=== PATIENT | male | born 1985 | race African-American/Black ===

== ENCOUNTER 2018-07-03 13:31 | Emergency (ER) | payer OTHER ==
[~2018-07-03] VITALS: Ht 185.4 cm; Wt 76.0 kg
[2018-07-03] MEDS ORDERED: IV NORMAL SALINE 1,000ML 1,000 ML IV ONE (14:00)
--- NOTE | 2018-07-03 14:09 | PHYS DOC ---
Past History Past Medical History: No Pertinent History Past Surgical History: No Surgical History Alcohol Use: None Drug Use: None Adult General Chief Complaint Chief Complaint: FEVER HPI HPI 32-year-old otherwise healthy male presents with a 2-3 day history of subjective fever, body aches, headache nausea vomiting diarrhea and malaise. He states he has been unable to keep anything down recently. He has no energy. He had come home from work secondary to the intractable nausea and vomiting as well as diarrhea.[] Review of Systems Review of Systems Constitutional: Denies fever or chills [] Eyes: Denies change in visual acuity, redness, or eye pain [] HENT: Denies nasal congestion or sore throat [] Respiratory: Denies cough or shortness of breath [] Cardiovascular: No additional information not addressed in HPI [] GI: Per history of present illness[] : Denies dysuria or hematuria [] Musculoskeletal: Denies back pain or joint pain [] Integument: Denies rash or skin lesions [] Neurologic: Denies headache, focal weakness or sensory changes [] Endocrine: Denies polyuria or polydipsia [] All other systems were reviewed and found to be within normal limits, except as documented in this note. Current Medications Current Medications Current Medications Medications (Trade) Dose Ordered Sig/Carlos Start Time Stop Time Status Last Admin Dose Admin Ketorolac Tromethamine (Toradol 30mg Vial) 30 mg 1X ONCE 07/03/18 14:00 07/03/18 14:01 UNV Ondansetron HCl (Zofran) 4 mg 1X ONCE 07/03/18 14:00 07/03/18 14:01 UNV Sodium Chloride 1,000 ml @ 1,000 mls/hr 1X ONCE 07/03/18 14:00 07/03/18 14:59 Allergies Allergies Allergies Coded Allergies Type Severity Reaction Last Updated Verified grass pollen Allergy Unknown 07/03/18 Yes Physical Exam Physical Exam Constitutional: Well developed, well nourished, appears acutely ill[] HENT: Normocephalic, atraumatic, bilateral external ears normal, oropharynx moist, no oral exudates, nose normal. [] Eyes: PERRLA, EOMI, conjunctiva normal, no discharge. [] Neck: Normal range of motion, no tenderness, supple, no stridor. [] Cardiovascular:Heart rate regular rhythm, no murmur [] Lungs & Thorax: Bilateral breath sounds clear to auscultation [] Abdomen: Bowel sounds normal, soft, no tenderness, no masses, no pulsatile masses. [] Skin: Warm, dry, no erythema, no rash. [] Back: No tenderness, no CVA tenderness. [] Extremities: No tenderness, no cyanosis, no clubbing, ROM intact, no edema. [] Neurologic: Alert and oriented X 3, normal motor function, normal sensory function, no focal deficits noted. [] Psychologic: Anxious[] Current Patient Data Vital Signs Vital Signs Date Time Temp Pulse Resp B/P (MAP) Pulse Ox O2 Delivery O2 Flow Rate FiO2 07/03/18 13:31 101.9 107 18 99 Room Air EKG EKG [] Radiology/Procedures Radiology/Procedures [] Course & Med Decision Making Course & Med Decision Making Pertinent Labs and Imaging studies reviewed. (See chart for details) [ED course: Evaluation reveals a 32-year-old male with acute gastroenteritis type symptoms. He was given IV fluids and Zofran during his stay in the department and he felt much better. He was able to tolerate Jell-O. Fill the patient is safe for discharge home at this time.] Dragon Disclaimer Dragon Disclaimer This electronic medical record was generated, in whole or in part, using a voice recognition dictation system. Departure Departure: Impression: Primary Impression: Viral gastroenteritis Disposition: 01 HOME, SELF-CARE Condition: IMPROVED Patient Instructions: Viral Gastroenteritis Additional Instructions: Plenty of fluids today including Gatorade or Powerade. Take Zofran as needed for nausea and vomiting. Return to the emergency department with any new or concerning symptoms Scripts Ondansetron (ONDANSETRON ODT) 4 Mg Tab.rapdis 1 TAB PO PRN Q6-8HRS for NAUSEA, #16 TAB Prov: PADDY MONTES DO 07/03/18 PADDY MONTES DO Jul 03, 2018 14:09
[2018-07-03] MEDS ORDERED: ONDANSETRON PF 4 MG/2 ML VIAL. IV ONE (14:20)
[2018-07-03] MEDS ORDERED: KETOROLAC 30 MG/ML VIAL. IV ONE (14:20)
[2018-07-03 14:22] LABS: BASO % 0 % (0-3); EOS % 0 % (0-3); HEMOGLOBIN 14.6 g/dL (13.0-17.5); LYMPH % 7 % (24-48); MEAN CORPUSCULAR HEMOGLOBIN 31 pg (25-35); MEAN CORPUSCULAR HGB CONC 34 g/dL (31-37); MEAN CORPUSCULAR VOLUME 92 fL (79-100); MONO # 1.7 x10^3/uL (0.0-1.1); MONO % 13 % (0-9); NEUT # 10.4 x10^3uL (1.8-7.7); NEUT % 80 % (31-73); PLATELET COUNT 137 x10^3/uL (140-400); RED BLOOD COUNT 4.65 x10^6/uL (4.30-5.70)
[2018-07-03 14:32] LABS: INFLUENZA A PATIENT NEGATIVE (NEGATIVE); INFLUENZA B PATIENT NEGATIVE (NEGATIVE)
[2018-07-03 14:44] LABS: ALBUMIN 2.7 g/dL (3.4-5.0); ALBUMIN/GLOBULIN RATIO 0.7 (1.0-1.7); CALCIUM 7.6 mg/dL (8.5-10.1); CREATININE 1.4 mg/dL (0.7-1.3); GFR 58.4; POTASSIUM 3.6 mmol/L (3.5-5.1); TOTAL BILIRUBIN 1.4 mg/dL (0.2-1.0); TOTAL PROTEIN 6.6 g/dL (6.4-8.2)
[2018-07-03 15:02] LABS: % ATYL 2 % (0-0); % BANDS 2 % (0-9); % LYMPHS 5 % (24-48); % MONOS 13 % (0-10); % SEGS 78 % (35-66)
[2018-07-03] MEDS ORDERED: ONDA4TAB12 PO (15:10)
[2018-07-03 15:14] LABS: PLT ESTIMATE ADEQUATE (ADEQUATE)
[2018-07-03 15:15] LABS: TOXIC GRANULATION MOD; TOXIC VACUOLATION MOD
[2018-07-03 15:23] VITALS: BP 92/38
== END 2018-07-03 15:25 | disposition home or self-care (01) ==
LOC: ER 13:31
DX: A08.4 Viral intestinal infection, unspecified (principal); R19.7 Diarrhea, unspecified; Z91.048 Other nonmedicinal substance allergy status
CPT/HCPCS: 36415; 80053; 83690; 85007; 85025; 87804; 96361; 96374; 96375; 99283; J1885; J2405; J7030

== ENCOUNTER 2018-07-07 09:35 | Emergency (ER) | payer OTHER ==
[~2018-07-07] VITALS: Ht 185.4 cm; Wt 86.2 kg
[~2018-07-07 09:35] MED LIST: ONDA4TAB12 PO
[2018-07-07] MEDS ORDERED: ONDANSETRON PF 4 MG/2 ML VIAL. IV ONE (09:45)
[2018-07-07] MEDS ORDERED: IV NORMAL SALINE 1,000ML 1,000 ML IV ONE ×2 (09:45→10:30)
[2018-07-07 10:23] LABS: BASO # 0.1 x10^3/uL (0.0-0.2); BASO % 0 % (0-3); EOS % 0 % (0-3); HEMOGLOBIN 12.5 g/dL (13.0-17.5); LYMPH # 1.2 x10^3/uL (1.0-4.8); LYMPH % 7 % (24-48); MEAN CORPUSCULAR HEMOGLOBIN 31 pg (25-35); MEAN CORPUSCULAR HGB CONC 34 g/dL (31-37); MEAN CORPUSCULAR VOLUME 93 fL (79-100); MONO # 2.2 x10^3/uL (0.0-1.1); MONO % 13 % (0-9); NEUT # 13.7 x10^3uL (1.8-7.7); NEUT % 80 % (31-73); PLATELET COUNT 239 x10^3/uL (140-400); RED BLOOD COUNT 4.01 x10^6/uL (4.30-5.70); RED CELL DISTRIBUTION WIDTH 14.2 % (11.5-14.5); WHITE BLOOD COUNT 17.2 x10^3/uL (4.0-11.0)
[2018-07-07 10:24] LABS: ALBUMIN 2.5 g/dL (3.4-5.0); ALBUMIN/GLOBULIN RATIO 0.6 (1.0-1.7); CALCIUM 8.2 mg/dL (8.5-10.1); CREATININE 1.7 mg/dL (0.7-1.3); GFR 56.4
[2018-07-07 10:35] LABS: INFLUENZA A PATIENT NEGATIVE (NEGATIVE); INFLUENZA B PATIENT NEGATIVE (NEGATIVE)
[2018-07-07 10:36] LABS: TOTAL BILIRUBIN 2.3 mg/dL (0.2-1.0)
[2018-07-07] MEDS ORDERED: IOHEXOL 300 MG/ML 75 ML VIAL. IV ONE (10:45)
[2018-07-07] MEDS ORDERED: ACETAMINOPHEN 500 MG TABLET PO ONE (10:45)
[2018-07-07 10:54] LABS: BILIRUBIN,URINE SMALL (NEG); CLARITY,URINE HAZY; COLOR,URINE AMBER; GLUCOSE,URINE NEG (NEG)
[2018-07-07 10:55] LABS: BACTERIA,URINE FEW /HPF (0-FEW); NITRITE,URINE POS (NEG); SQUAMOUS EPITHELIAL CELL,UR OCC /LPF; UROBILINOGEN,URINE 8 mg/dL (0.2 mg/dL)
[2018-07-07 11:20] LABS: % ATYL 1 % (0-0); % LYMPHS 5 % (24-48); % MONOS 9 % (0-10); % SEGS 85 % (35-66)
[2018-07-07 11:22] LABS: PLT ESTIMATE ADEQUATE (ADEQUATE)
[2018-07-07 11:23] LABS: ANISOCYTOSIS SLIGHT; HYPOCHROMIA SLIGHT
--- NOTE | 2018-07-07 11:30 | RAD ---
Examination: CT ABD PELV W/ IV CONTRST ONLY History: Left groin pain, vomiting. Reduced dse per dept protocol OMNI 300 60ml, GFR 52, CREAT 1.7 Comparison/Correlation: None Findings: Axial images of the abdomen and pelvis were obtained following IV contrast. Sagittal and coronal reformatted images provided. Hepatic dome was not fully included. Visualized lung bases are clear. Liver, spleen, increased, adrenal glands, and kidneys are normal. No enlarged abdominal or intrapelvic lymph nodes. Borderline left pelvic sidewall lymph nodes are few in number. Urinary bladder is unremarkable. No radiopaque collecting system calculi on this contrast-enhanced exam. No collecting system obstruction. Kidneys are normal. Fluid is noted within large and small bowel. No significant distention of bowel identified. Appendix is not definitely delineated. Evaluation is limited due to minimal mesenteric fat and lack of oral contrast. Moderate L5/S1 disc space narrowing is present. Retrolisthesis of L5 in relation S1 by 0.8 cm is present and less than grade 1 extent. No fracture or bony destructive finding. Significant edema is noted involving the subcutaneous fat of the anterior left groin region and partially imaged proximal thigh. Left inguinal lymph nodes are and identified to measure up to 1 cm short axis diameter. Vertebral body heights are adequate. Impression: Significant edema of the left groin and proximal thigh centimeters heterogeneous fat anteromedially. No loculated collections. Entire extent of this process distally is not included on this exam. Borderline left axillary lymph nodes are present and presumably reactive. Correlate for underlying infectious/inflammatory process. Fluid is present within nondistended large and small bowel. Correlate for enteritis. No findings of obstruction seen. L5-S1 disc space narrowing and retrolisthesis. Degenerative changes advanced for age. No findings of pars interarticularis fracture. PQRS Compliance Statement: One or more of the following individualized dose reduction techniques were utilized for this examination: 1. Automated exposure control 2. Adjustment of the mA and/or kV according to patient size 3. Use of iterative reconstruction technique Electronically signed by: Fox Zepeda MD (07/07/2018 11:28 AM) [id number]
[2018-07-07] MEDS ORDERED: cefTRIAXone SODIUM 1 GM VIAL ONE (11:51)
[2018-07-07] MEDS ORDERED: IV NORMAL SALINE 50ML 50 ML ONE (11:51)
--- NOTE | 2018-07-07 11:55 | PHYS DOC ---
Past History Past Medical History: No Pertinent History Past Surgical History: No Surgical History Alcohol Use: None Drug Use: None Adult General Chief Complaint Chief Complaint: FEVER HPI HPI 32-year-old male presents with left groin pain. The patient has had symptoms of viral illness for the last week and a half with nausea, vomiting, cough, congestion. He was previously seen and diagnosed with viral syndrome. She presents today because he has left groin pain that continues to bother him. He tells me that has been there about a week and a half. He has had some pain with urination. He is also had fever at home greater than 100.4. He denies recent trauma or overuse. No abdominal surgical history. Review of Systems Review of Systems Constitutional: Denies fever or chills [] Eyes: Denies change in visual acuity, redness, or eye pain [] HENT: Denies nasal congestion or sore throat [] Respiratory: Denies cough or shortness of breath [] Cardiovascular: No additional information not addressed in HPI [] GI: Denies abdominal pain, nausea, vomiting, bloody stools or diarrhea [] : Denies dysuria or hematuria [] Musculoskeletal: Denies back pain or joint pain [] Integument: Denies rash or skin lesions [] Neurologic: Denies headache, focal weakness or sensory changes [] Endocrine: Denies polyuria or polydipsia [] All other systems were reviewed and found to be within normal limits, except as documented in this note. Current Medications Current Medications Current Medications Medications (Trade) Dose Ordered Sig/Carlos Start Time Stop Time Status Last Admin Dose Admin Acetaminophen (Tylenol) 1,000 mg 1X ONCE 07/07/18 10:45 07/07/18 10:46 DC 07/07/18 10:33 1,000 MG Ceftriaxone Sodium 1 gm/ Sodium Chloride 50 ml @ 100 mls/hr 1X ONCE 07/07/18 11:45 07/07/18 12:14 UNV Iohexol (Omnipaque 300 Mg/ml) 75 ml 1X ONCE 07/07/18 10:45 07/07/18 10:46 DC 07/07/18 11:03 60 ML Ondansetron HCl (Zofran) 4 mg 1X ONCE 07/07/18 09:45 07/07/18 09:45 DC Sodium Chloride 1,000 ml @ 1,000 mls/hr 1X ONCE 07/07/18 10:30 07/07/18 11:29 DC 07/07/18 10:31 1,000 MLS/HR Allergies Allergies Allergies Coded Allergies Type Severity Reaction Last Updated Verified grass pollen Allergy Unknown 07/03/18 Yes Physical Exam Physical Exam Constitutional: Well developed, well nourished, no acute distress, non-toxic appearance. [] HENT: Normocephalic, atraumatic, bilateral external ears normal, oropharynx moist, no oral exudates, nose normal. [] Eyes: PERRLA, EOMI, conjunctiva normal, no discharge. [] Neck: Normal range of motion, no tenderness, supple, no stridor. [] Cardiovascular:Heart rate regular rhythm, no murmur [] Lungs & Thorax: Bilateral breath sounds clear to auscultation [] Abdomen: Bowel sounds normal, soft, no tenderness, no masses, no pulsatile masses. [] Skin: Warm, dry, no erythema, no rash. [] Back: No tenderness, no CVA tenderness. [] Extremities: No tenderness, no cyanosis, no clubbing, ROM intact, no edema. [] Neurologic: Alert and oriented X 3, normal motor function, normal sensory function, no focal deficits noted. [] Psychologic: Affect normal, judgement normal, mood normal. [] Current Patient Data Vital Signs Vital Signs Date Time Temp Pulse Resp B/P (MAP) Pulse Ox O2 Delivery O2 Flow Rate FiO2 07/07/18 10:37 80 20 90/48 (62) 97 Room Air 07/07/18 09:50 100.4 Lab Results Laboratory Tests Test 07/07/18 09:58 07/07/18 10:00 07/07/18 10:20 White Blood Count 17.2 x10^3/uL (4.0-11.0) H Red Blood Count 4.01 x10^6/uL (4.30-5.70) L Hemoglobin 12.5 g/dL (13.0-17.5) L Hematocrit 37.0 % (39.0-53.0) L Mean Corpuscular Volume 93 fL (79-100) Mean Corpuscular Hemoglobin 31 pg (25-35) Mean Corpuscular Hemoglobin Concent 34 g/dL (31-37) Red Cell Distribution Width 14.2 % (11.5-14.5) Platelet Count 239 x10^3/uL (140-400) Neutrophils (%) (Auto) 80 % (31-73) H Lymphocytes (%) (Auto) 7 % (24-48) L Monocytes (%) (Auto) 13 % (0-9) H Eosinophils (%) (Auto) 0 % (0-3) Basophils (%) (Auto) 0 % (0-3) Neutrophils # (Auto) 13.7 x10^3uL (1.8-7.7) H Lymphocytes # (Auto) 1.2 x10^3/uL (1.0-4.8) Monocytes # (Auto) 2.2 x10^3/uL (0.0-1.1) H Eosinophils # (Auto) 0.0 x10^3/uL (0.0-0.7) Basophils # (Auto) 0.1 x10^3/uL (0.0-0.2) Segmented Neutrophils % 85 % (35-66) H Lymphocytes % 5 % (24-48) L Atypical Lymphocytes % (Manual) 1 % (0-0) H Monocytes % 9 % (0-10) Platelet Estimate Adequate (ADEQUATE) Hypochromasia Slight Anisocytosis Slight Sodium Level 133 mmol/L (136-145) L Potassium Level 4.0 mmol/L (3.5-5.1) Chloride Level 97 mmol/L (98-107) L Carbon Dioxide Level 27 mmol/L (21-32) Anion Gap 9 (6-14) Blood Urea Nitrogen 12 mg/dL (8-26) Creatinine 1.7 mg/dL (0.7-1.3) H Estimated GFR (Cockcroft-Gault) 56.4 BUN/Creatinine Ratio 7 (6-20) Glucose Level 100 mg/dL (70-99) H Calcium Level 8.2 mg/dL (8.5-10.1) L Total Bilirubin 2.3 mg/dL (0.2-1.0) H Aspartate Amino Transferase (AST) 146 U/L (15-37) H Alanine Aminotransferase (ALT) 236 U/L (16-63) H Alkaline Phosphatase 94 U/L (46-116) Total Protein 7.0 g/dL (6.4-8.2) Albumin 2.5 g/dL (3.4-5.0) L Albumin/Globulin Ratio 0.6 (1.0-1.7) L Lipase 304 U/L (73-393) Influenza Type A (Rapid) Negative (NEGATIVE) Influenza Type B (Rapid) Negative (NEGATIVE) Urine Collection Type Unknown Urine Color Yasmine Urine Clarity Hazy Urine pH 6.5 Urine Specific Cookson 1.010 Urine Protein 100 mg/dl (NEG-TRACE) Urine Glucose (UA) Neg mg/dL (NEG) Urine Ketones (Stick) Trace mg/dL (NEG) Urine Blood Large (NEG) Urine Nitrite Pos (NEG) Urine Bilirubin Small (NEG) Urine Urobilinogen Dipstick 8 mg/dL (0.2 mg/dL) Urine Leukocyte Esterase Neg (NEG) Urine RBC 11-20 /HPF (0-2) Urine WBC 5-10 /HPF (0-4) Urine Squamous Epithelial Cells Occ /LPF Urine Bacteria Few /HPF (0-FEW) Urine Mucus Slight /LPF EKG EKG [] Radiology/Procedures Radiology/Procedures [] Impressions: Examination: CT ABD PELV W/ IV CONTRST ONLY History: Left groin pain, vomiting. Reduced dse per dept protocol OMNI 300 60ml, GFR 52, CREAT 1.7 Comparison/Correlation: None Findings: Axial images of the abdomen and pelvis were obtained following IV contrast. Sagittal and coronal reformatted images provided. Hepatic dome was not fully included. Visualized lung bases are clear. Liver, spleen, increased, adrenal glands, and kidneys are normal. No enlarged abdominal or intrapelvic lymph nodes. Borderline left pelvic sidewall lymph nodes are few in number. Urinary bladder is unremarkable. No radiopaque collecting system calculi on this contrast-enhanced exam. No collecting system obstruction. Kidneys are normal. Fluid is noted within large and small bowel. No significant distention of bowel identified. Appendix is not definitely delineated. Evaluation is limited due to minimal mesenteric fat and lack of oral contrast. Moderate L5/S1 disc space narrowing is present. Retrolisthesis of L5 in relation S1 by 0.8 cm is present and less than grade 1 extent. No fracture or bony destructive finding. Significant edema is noted involving the subcutaneous fat of the anterior left groin region and partially imaged proximal thigh. Left inguinal lymph nodes are and identified to measure up to 1 cm short axis diameter. Vertebral body heights are adequate. Impression: Significant edema of the left groin and proximal thigh centimeters heterogeneous fat anteromedially. No loculated collections. Entire extent of this process distally is not included on this exam. Borderline left axillary lymph nodes are present and presumably reactive. Correlate for underlying infectious/inflammatory process. Fluid is present within nondistended large and small bowel. Correlate for enteritis. No findings of obstruction seen. L5-S1 disc space narrowing and retrolisthesis. Degenerative changes advanced for age. No findings of pars interarticularis fracture. PQRS Compliance Statement: One or more of the following individualized dose reduction techniques were utilized for this examination: 1. Automated exposure control 2. Adjustment of the mA and/or kV according to patient size 3. Use of iterative reconstruction technique Electronically signed by: Fox Ramirez MD (07/07/2018 11:28 AM) [id number] DICTATED AND SIGNED BY: FOX RAMIREZ MD DATE: 07/07/18 1117 CC: KHUSHI GILLIAM DO; PCP,NO Course & Med Decision Making Course & Med Decision Making Pertinent Labs and Imaging studies reviewed. (See chart for details) Patient's labs are significant for an elevated white count, elevated AST and ALT. Patient's CT scan shows likely reactive edema and the left groin. Upon further discussion with the patient he was recently tested a few days ago for STDs as he had sexual person known to have chlamydia. He has not gotten his results yet. I am more inclined to treat him for his urinary tract infection with Rocephin and he would like me to add azithromycin to treat chlamydia and gonorrhea. I have ordered azithromycin. Not sure what the sensitivities elevated liver enzymes. I will order an acute hepatitis panel. The pain was a send out and will not be available today. I will discharge the patient at this time for his results as appropriate. [] Dragon Disclaimer Dragon Disclaimer This electronic medical record was generated, in whole or in part, using a voice recognition dictation system. Departure Departure: Impression: Primary Impression: UTI (urinary tract infection) Additional Impressions: Abnormal CT scan, pelvis Elevated liver enzymes Concern about STD in male without diagnosis Disposition: 01 HOME, SELF-CARE Condition: STABLE Referrals: PCP,NO (PCP) Patient Instructions: Urinary Tract Infection, [id number] Scripts Cephalexin (KEFLEX) 500 Mg Capsule 1 CAP PO TID for uti, #21 CAP Prov: KHUSHI GILLIAM DO 07/07/18 Problem Qualifiers Primary Impression: UTI (urinary tract infection) Urinary tract infection type: acute cystitis Hematuria presence: with hematuria Qualified Codes: N30.01 - Acute cystitis with hematuria KHUSHI GILLIAM DO Jul 07, 2018 11:55
[2018-07-07] MEDS ORDERED: AZITHROMYCIN 250 MG TABLET. PO ONE (12:20)
[2018-07-07] MEDS ORDERED: CEPH-264 PO (13:09)
[2018-07-07 13:10] VITALS: BP 92/58
== END 2018-07-07 13:20 | disposition home or self-care (01) ==
LOC: ER 09:35
DX: N30.01 Acute cystitis with hematuria (principal); R93.5 Abnormal findings on diagnostic imaging of other abdominal regions, including retroperitoneum; R74.8 Abnormal levels of other serum enzymes; R11.2 Nausea with vomiting, unspecified; Z20.2 Contact with and (suspected) exposure to infections with a predominantly sexual mode of transmission; Z88.8 Allergy status to other drugs, medicaments and biological substances
CPT/HCPCS: 36415; 74177; 80053; 81001; 83690; 85007; 85025; 86705; 86709; 86803; 87086; 87340; 87804; 96360; 99284; J0456; J0696; Q9967; 96361; 96365; J7030